=== PATIENT | male | born 1965 | race American Indian/Alaskan Native ===

== ENCOUNTER 2017-02-16 06:36 | Inpatient (IN) | payer OTHER ==
[2017-02-16] MEDS ORDERED: ZOFRAN ONE (06:40)
[2017-02-16] MEDS ORDERED: NACL 0.9% 1000 ML 0 ML ONE (06:40)
[2017-02-16] MEDS ORDERED: NORMODYNE IV ONE (06:59)
[2017-02-16] MEDS ORDERED: PROTONIX IV ONE (07:00)
[2017-02-16] MEDS ORDERED: ZOFRAN IV ONE (07:00)
[2017-02-16] MEDS ORDERED: NACL 0.9% 500 ML 500 ML IV ONE (07:00)
--- NOTE | 2017-02-16 07:04 | Emergency Department Report ---
ED GI Bleed HPI - General Chief complaint: GI Bleed Stated complaint: EMESIS/DIZZINESS/NAUSEA Time Seen by Provider: 02/16/17 06:53 Source: patient, EMS Mode of arrival: Stretcher Limitations: No Limitations - History of Present Illness Initial comments: 51-year-old male with a past medical history hypertension presents to the hospital with complaints of coffee-ground emesis since 5:15 AM. Patient reports that he had take-out curried chicken last night. Complains of mild mid abdominal pain. Last bowel movement was last night and was normal. Patient denies previous abdominal surgeries. Patient states he takes 81 mg aspirin and 2 blood pressure medications. He denies other NSAID or anticoagulate use. He states he rarely takes his blood pressure medication. No complaints of headache , blurred vision, chest pain, shortness of breath, fever, melena, or hematochezia. Severity scale (0 -10): 4 - Related Data Home Medications Medication Instructions Recorded Confirmed Last Taken Unobtainable 02/16/17 02/16/17 Unknown Allergies Allergy/AdvReac Type Severity Reaction Status Date / Time Penicillins Allergy Anaphylaxis Verified 02/16/17 06:58 ED Review of Systems ROS: Stated complaint: EMESIS/DIZZINESS/NAUSEA Other details as noted in HPI Comment: All other systems reviewed and negative Other: Constitutional: No fevers chills Eyes: No eye pain visual changes or discharge ENT: No ear pain or throat pain Neck: Denies pain Respiratory: Denies cough wheezing shortness of breath Cardiovascular: Denies chest pain, palpitations. Positive lightheadedness GI: As per HPI : Denies dysuria Musculoskeletal: Denies back pain, joint swelling Skin: Denies rash, lesions, erythema Neurologic: Denies headache, numbness, weakness Psychiatric: Denies suicidal ideation, hallucinations Hematological/lymphatic: Denies easy bruising, lymphadenopathy ED Past Medical Hx - Past Medical History Previous Medical History?: Yes Hx Hypertension: Yes - Surgical History Past Surgical History?: No - Social History Smoking Status: Never Smoker Substance Use Type: Alcohol - Medications Home Medications: Home Medications Medication Instructions Recorded Confirmed Last Taken Type Unobtainable 02/16/17 02/16/17 Unknown History ED Physical Exam - General Limitations: No Limitations - Other Other exam information: General: No limitations, patient is alert in no acute distress Head exam: Atraumatic, normocephalic Eyes exam: Normal appearance ENT: Moist mucous membrane, normal oropharynx Neck exam: Normal inspection, full range of motion, no meningismus nontender Respiratory exam: Clear to auscultation bilateral, no wheezes, rales, crackles Cardiovascular: Normal rate and rhythm, normal heart sounds Abdomen: Soft, nondistended, and nontender, with normal bowel sounds, no rebound, or guarding. Coffee-ground emesis at the bedside Extremity: Full range of motion normal inspection no deformity Back: Normal Inspection, full range of motion, no tenderness Neurologic: Alert, oriented x3, cranial nerves intact, no motor or sensory deficit Psychiatric: normal affect, normal mood Skin: Warm, dry, intact ED Course Vital Signs 02/16/17 02/16/17 02/16/17 03:49 03:50 04:00 Temperature Pulse Rate Respiratory Rate Blood Pressure 119/81 119/81 119/81 Blood Pressure [Right] O2 Sat by Pulse 100 100 100 Oximetry 02/16/17 02/16/17 02/16/17 04:10 04:20 04:30 Temperature Pulse Rate Respiratory Rate Blood Pressure 119/81 119/81 119/81 Blood Pressure [Right] O2 Sat by Pulse 100 100 100 Oximetry 02/16/17 02/16/17 02/16/17 04:40 04:50 05:00 Temperature Pulse Rate Respiratory Rate Blood Pressure 119/81 119/81 119/81 Blood Pressure [Right] O2 Sat by Pulse 100 100 100 Oximetry 02/16/17 02/16/17 02/16/17 05:10 05:20 05:30 Temperature Pulse Rate Respiratory Rate Blood Pressure 119/81 119/81 119/81 Blood Pressure [Right] O2 Sat by Pulse 100 100 100 Oximetry 02/16/17 02/16/17 02/16/17 05:40 06:32 06:40 Temperature Pulse Rate Respiratory Rate Blood Pressure 119/81 119/81 191/113 Blood Pressure [Right] O2 Sat by Pulse 100 96 95 Oximetry 02/16/17 02/16/17 02/16/17 06:47 06:50 06:52 Temperature 97.7 F Pulse Rate 92 H Respiratory 20 Rate Blood Pressure 191/113 191/113 191/113 Blood Pressure 191/113 [Right] O2 Sat by Pulse 98 93 100 Oximetry 02/16/17 02/16/17 02/16/17 06:53 06:54 06:56 Temperature Pulse Rate Respiratory 20 Rate Blood Pressure 191/113 191/113 Blood Pressure [Right] O2 Sat by Pulse 98 94 94 Oximetry 02/16/17 02/16/17 02/16/17 06:58 07:00 07:02 Temperature Pulse Rate Respiratory Rate Blood Pressure 191/113 191/113 191/113 Blood Pressure [Right] O2 Sat by Pulse 94 98 94 Oximetry 02/16/17 02/16/17 02/16/17 07:04 07:05 07:06 Temperature Pulse Rate Respiratory Rate Blood Pressure 191/113 179/113 179/113 Blood Pressure [Right] O2 Sat by Pulse 99 95 91 Oximetry 02/16/17 02/16/17 02/16/17 07:08 07:10 07:11 Temperature Pulse Rate Respiratory Rate Blood Pressure 179/113 179/113 191/113 Blood Pressure [Right] O2 Sat by Pulse 86 86 Oximetry 02/16/17 02/16/17 02/16/17 07:12 07:14 07:16 Temperature Pulse Rate Respiratory Rate Blood Pressure 179/113 179/113 179/113 Blood Pressure [Right] O2 Sat by Pulse 87 91 93 Oximetry 02/16/17 02/16/17 02/16/17 07:18 07:20 07:22 Temperature Pulse Rate Respiratory Rate Blood Pressure 179/113 179/113 179/113 Blood Pressure [Right] O2 Sat by Pulse 92 93 94 Oximetry 02/16/17 02/16/17 02/16/17 07:24 07:26 07:28 Temperature Pulse Rate Respiratory Rate Blood Pressure 179/113 179/113 179/113 Blood Pressure [Right] O2 Sat by Pulse 92 94 95 Oximetry 02/16/17 02/16/17 02/16/17 07:30 07:31 07:32 Temperature Pulse Rate Respiratory Rate Blood Pressure 179/113 167/108 167/108 Blood Pressure [Right] O2 Sat by Pulse 92 97 96 Oximetry 02/16/17 02/16/17 02/16/17 07:34 07:36 07:38 Temperature Pulse Rate Respiratory Rate Blood Pressure 167/108 167/108 167/108 Blood Pressure [Right] O2 Sat by Pulse 97 97 97 Oximetry 02/16/17 02/16/17 02/16/17 07:40 07:42 07:44 Temperature Pulse Rate Respiratory Rate Blood Pressure 167/108 167/108 167/108 Blood Pressure [Right] O2 Sat by Pulse 98 98 98 Oximetry 02/16/17 02/16/17 02/16/17 07:46 07:48 07:49 Temperature Pulse Rate Respiratory Rate Blood Pressure 167/108 167/108 191/113 Blood Pressure [Right] O2 Sat by Pulse 96 95 93 Oximetry 02/16/17 02/16/17 02/16/17 07:50 07:52 07:54 Temperature Pulse Rate Respiratory Rate Blood Pressure 191/113 216/134 216/134 Blood Pressure [Right] O2 Sat by Pulse 99 97 96 Oximetry 02/16/17 02/16/17 02/16/17 07:56 07:58 08:00 Temperature Pulse Rate Respiratory Rate Blood Pressure 216/134 216/134 182/117 Blood Pressure [Right] O2 Sat by Pulse 93 97 96 Oximetry 02/16/17 02/16/17 02/16/17 08:02 08:04 08:06 Temperature Pulse Rate Respiratory Rate Blood Pressure 182/117 182/117 182/117 Blood Pressure [Right] O2 Sat by Pulse 96 92 93 Oximetry 02/16/17 02/16/17 02/16/17 08:08 08:10 08:12 Temperature Pulse Rate Respiratory Rate Blood Pressure 182/117 182/117 182/117 Blood Pressure [Right] O2 Sat by Pulse 96 95 93 Oximetry 02/16/17 08:14 Temperature Pulse Rate Respiratory Rate Blood Pressure 182/117 Blood Pressure [Right] O2 Sat by Pulse 95 Oximetry - Reevaluation(s) Reevaluation #1: 02/16/17 08:09 Patient received labetalol 10 mg IV prior to arrival. Blood pressure is increased despite this medication. Cardene drip has been ordered. Patient also received Protonix IV 40 mg, Zofran, and normal saline - Consultations Consultation #1: 02/16/17 08:[address] Atkins higher education administrator GI physician who will evaluate patient ED Medical Decision Making - Lab Data Result diagrams: 02/16/17 07:05 02/16/17 07:05 Lab Results 02/16/17 02/16/17 02/16/17 Range/Units 07:05 07:05 07:05 WBC 14.6 H (4.5-11.0) K/mm3 RBC 5.24 H (3.65-5.03) M/mm3 Hgb 15.6 H (11.8-15.2) gm/dl Hct 47.9 H (35.5-45.6) % MCV 91 (84-94) fl MCH 30 (28-32) pg MCHC 33 (32-34) % RDW 13.0 L (13.2-15.2) % Plt Count 290 (140-440) K/mm3 Lymph % (Auto) 16.2 (13.4-35.0) % [place] % (Auto) 6.4 (0.0-7.3) % Eos % (Auto) 1.1 (0.0-4.3) % Baso % (Auto) 0.4 (0.0-1.8) % Lymph # 2.4 (1.2-5.4) K/mm3 [place] # 0.9 H (0.0-0.8) K/mm3 Eos # 0.2 (0.0-0.4) K/mm3 Baso # 0.1 (0.0-0.1) K/mm3 Seg Neutrophils % 75.9 H (40.0-70.0) % Seg Neutrophils # 11.1 H (1.8-7.7) K/mm3 PT 12.9 (12.2-14.9) Sec. INR 0.98 (0.87-1.13) APTT 27.2 (24.2-36.6) Sec. Sodium 143 (137-145) mmol/L Potassium 3.4 L (3.6-5.0) mmol/L Chloride 103.1 (98-107) mmol/L Carbon Dioxide 24 (22-30) mmol/L Anion Gap 19 mmol/L BUN 21 H (9-20) mg/dL Creatinine 1.0 (0.8-1.5) mg/dL Estimated GFR > 60 ml/min BUN/Creatinine Ratio 21.00 % Glucose 234 H (75-100) mg/dL Calcium 8.4 (8.4-10.2) mg/dL Total Bilirubin 0.90 (0.1-1.2) mg/dL AST 22 (5-40) units/L ALT 14 (7-56) units/L Alkaline Phosphatase 62 (35-129) units/L Total Creatine Kinase 180 H (55-170) units/L CK-MB (CK-2) 4.3 H (0.0-4.0) ng/mL CK-MB (CK-2) Rel Index 2.3 (0-4) Troponin T < 0.010 (0.00-0.029) ng/mL Total Protein 7.3 (6.3-8.2) g/dL Albumin 4.2 (3.9-5) g/dL Albumin/Globulin Ratio 1.4 % Lipase (13-60) units/L Blood Type Antibody Screen 02/16/17 02/16/17 Range/Units 07:05 07:05 WBC (4.5-11.0) K/mm3 RBC (3.65-5.03) M/mm3 Hgb (11.8-15.2) gm/dl Hct (35.5-45.6) % MCV (84-94) fl MCH (28-32) pg MCHC (32-34) % RDW (13.2-15.2) % Plt Count (140-440) K/mm3 Lymph % (Auto) (13.4-35.0) % [place] % (Auto) (0.0-7.3) % Eos % (Auto) (0.0-4.3) % Baso % (Auto) (0.0-1.8) % Lymph # (1.2-5.4) K/mm3 [place] # (0.0-0.8) K/mm3 Eos # (0.0-0.4) K/mm3 Baso # (0.0-0.1) K/mm3 Seg Neutrophils % (40.0-70.0) % Seg Neutrophils # (1.8-7.7) K/mm3 PT (12.2-14.9) Sec. INR (0.87-1.13) APTT (24.2-36.6) Sec. Sodium (137-145) mmol/L Potassium (3.6-5.0) mmol/L Chloride (98-107) mmol/L Carbon Dioxide (22-30) mmol/L Anion Gap mmol/L BUN (9-20) mg/dL Creatinine (0.8-1.5) mg/dL Estimated GFR ml/min BUN/Creatinine Ratio % Glucose (75-100) mg/dL Calcium (8.4-10.2) mg/dL Total Bilirubin (0.1-1.2) mg/dL AST (5-40) units/L ALT (7-56) units/L Alkaline Phosphatase (35-129) units/L Total Creatine Kinase (55-170) units/L CK-MB (CK-2) (0.0-4.0) ng/mL CK-MB (CK-2) Rel Index (0-4) Troponin T (0.00-0.029) ng/mL Total Protein (6.3-8.2) g/dL Albumin (3.9-5) g/dL Albumin/Globulin Ratio % Lipase 38 (13-60) units/L Blood Type O POSITIVE Antibody Screen TNR - EKG Data -: EKG Interpreted by Me (sinus [address] elevation or T-wave inversion) - EKG Data When compared to previous EKG there are: previous EKG unavailable - Medical Decision Making Plan to admit patient to hospital for coffee-ground emesis and uncontrolled blood pressure. Patient also has mild hypokalemia and elevated glucose. - Differential Diagnosis gastritis, food poisoning, GI bleed, Yohana-Randhawa, varices, PUD Critical Care Time: No Critical care attestation.: If time is entered above; I have spent that time in minutes in the direct care of this critically ill patient, excluding procedure time. ED Disposition Clinical Impression: Coffee ground emesis, Hypertensive urgency, Hypokalemia, Elevated glucose, Lightheadedness Disposition: OP ADMITTED IP TO THIS HOSP Is pt being admited?: Yes Condition: Stable Time of Disposition: 08:11 (Dr Fraire/Hosp)
[2017-02-16 07:21] LABS: Basophils % (Auto) 0.4 % (0.0-1.8); Eosinophils % (Auto) 1.1 % (0.0-4.3); Hematocrit 47.9 % (35.5-45.6); Hemoglobin 15.6 gm/dl (11.8-15.2); Mean Corpuscular HGB Conc 33 % (32-34); Mean Corpuscular Hemoglobin 30 pg (28-32); Mean Corpuscular Volume 91 fl (84-94); Platelet Count 290 K/mm3 (140-440); Red Blood Count 5.24 M/mm3 (3.65-5.03); White Blood Count 14.6 K/mm3 (4.5-11.0)
[2017-02-16 07:31] LABS: INR 0.98 (0.87-1.13); Partial Thromboplastin Time 27.2 Sec. (24.2-36.6)
[2017-02-16 07:43] LABS: Creatine Kinase MB 4.3 ng/mL (0.0-4.0)
[2017-02-16 07:45] LABS: Alanine Aminotransferase 14 units/L (7-56); Albumin 4.2 g/dL (3.9-5); Albumin/Globulin Ratio 1.4 %; Alkaline Phosphatase 62 units/L (35-129); Anion Gap 19 mmol/L; Blood Urea Nitrogen 21 mg/dL (9-20); Calcium 8.4 mg/dL (8.4-10.2); Carbon Dioxide 24 mmol/L (22-30); Chloride 103.1 mmol/L (98-107); Creatine Kinase 180 units/L (55-170); Glucose 234 mg/dL (75-100); Potassium 3.4 mmol/L (3.6-5.0); Sodium 143 mmol/L (137-145); Total Protein 7.3 g/dL (6.3-8.2)
--- NOTE | 2017-02-16 08:24 | Admit Criteria Form ---
Admission Criteria Documentation: GASTROINTESTINAL BLEEDING, UPPER Clinical Indications for Admission to Inpatient Care ( Place 'X' for any and all applicable criteria): Admission is indicated for ANY ONE of the following(1)(2)(3)(4)(5)(6): [ X]I. Active bleeding (eg, fresh voluminous blood in emesis or nasogastric aspirate) [ ]II. Associated conditions requiring hospitalization (eg, perforation, obstruction from ulcer) [ X]III. Inpatient admission required rather than observation care (Also use Gastrointestinal Bleeding, Upper: Observation Care as appropriate) because of ANY ONE of the following: [ ]a) Hemodynamic instability that is severe or persistent [ ]b) Anemia requiring inpatient admission as indicated by ALL of the following: [ ]1) Presence of significant clinical finding indicated by ANY ONE of the following: [ ]A. Tachycardia for age [ ]B. Orthostatic vital sign changes [ ]C. Cognitive impairment [ ]D. Heart failure [ ]E. Chest pain [ ]F. Exertional dyspnea [ ]G. Other findings suggesting inadequate perfusion (eg, peripheral or myocardial ischemia, end organ dysfunction) [ ]2) Initial (eg, emergency department, observation care) treatment with transfusion or volume replacement is judged inappropriate (due to severity of the finding) or has been ineffective [ ]c) Severe pain requiring acute inpatient management [ ]d) High-risk low platelet count [ ]e) IV fluid to replace significant ongoing losses (greater than 3 L/m2 per day) [ ]f) Immediate inpatient surgery [ X]g) Other condition, treatment or monitoring requiring inpatient admission [ ]IV. Severe liver disease (eg, cirrhosis) [ ]V. Significant active comorbid disease [ ]. Anticoagulation therapy [ ]VII. High-risk endoscopic features (arterial bleeding, adherent clot, nonbleeding visible vessel, varices, flat red spots, ulcer size greater than 2 cm, or portal hypertensive gastropathy) [ ]VIII. Previous aortic graft placement or known aortic aneurysm [ ]IX. Coagulopathy [ ]X. Syncope Extended stay beyond goal length of stay may be needed for(1)(2): [ ]a) Emergency surgery [ ]b) Varices [ ]c) Coagulation abnormalities [ ]d) Recurrent, obscure, or persistent bleeding or continued Hemodynamic instability [ ]e) Associated conditions requiring surgery (eg, perforated gastric ulcer, gastric outlet obstruction) [ ]f) Active comorbidities (eg, renal insufficiency, heart failure, pre- existing liver disease) The original [facility] [email or web address] content created by [facility] has been revised. The portions of the content which have been revised are identified through the use of italic text or in bold, and [facility] has neither reviewed nor approved the modified material. All other unmodified content is copyright [facility] [employer]. Please see references footnoted in the original [facility] edition 2016 Admission Criteria Met: Yes
[2017-02-16] MEDS ORDERED: CARDENE 50 MG in NACL 0.9% 250ML 230 ML IV SCH (09:00)
[2017-02-16] MEDS ORDERED: TYLENOL PO PRN (09:34)
[2017-02-16] MEDS ORDERED: MILK OF MAGNESIA PO PRN (09:34)
[2017-02-16] MEDS ORDERED: DULCOLAX PR PRN (09:34)
[2017-02-16] MEDS ORDERED: D50W (25GM) IV PRN (09:34)
--- NOTE | 2017-02-16 09:43 | History and Physical Report ---
History of Present Illness Chief complaint: i was vomiting History of present illness: 51-year-old male with a past medical history of hypertension and diabetes. States that he follows up with his PCP who is Dr. Juan Farooq, he admits that he was supposedly taking a baby aspirin daily 2 blood pressure medications and he has not been compliant with his meds for long period of time. He also states that he thinks he has diabetes mellitus ever followed up about 5 months, and does not follow a diabetic diet. He states that he had some [place] chicken takeout last night he slept well this morning he woke up was in his usual state of health, ready to go to work and then felt very dizzy and lightheaded. After which she started retching and vomiting. He states that he had a lot of retching he vomited about 20 times, emesis was mostly low volume, nonbilious, but the last 2 times he vomited he noticed some coffee grounds in his emesis. He denies using aspirin or any NSAIDs or any blood thinners. He denies chest pain. He states that after he started vomiting he started having it out of 10 cramping like pain in the periumbilical region that was exacerbated by vomiting and relieved when vomiting stops. He denies chest pain denies shortness of breath, at this moment he states that he is no longer nauseous place still feeling somewhat dizzy and exhausted. Past History Past Medical History: diabetes, hypertension Past Surgical History: No surgical history Social history: no significant social history, other (works for [employer]) Family history: CAD (father had premature CA), cancer (breast cancer and mother) , hypertension (father) Medications and Allergies Allergies Allergy/AdvReac Type Severity Reaction Status Date / Time Penicillins Allergy Anaphylaxis Verified 02/16/17 06:58 Home Medications Medication Instructions Recorded Confirmed Last Taken Type Unobtainable 02/16/17 02/16/17 Unknown History Active Meds: Active Medications Acetaminophen (Tylenol) 650 mg PO Q4H PRN PRN Reason: Pain MILD(1-3)/Fever >100.5/VIDAL Bisacodyl (Dulcolax) [address] QDAY PRN PRN Reason: Constipation unrelieved by MOM Dextrose (D50w (25gm)) 50 ml IV PRN PRN PRN Reason: Hypoglycemia Enoxaparin Sodium (Lovenox) 40 mg SUB-Q QDAY@2200 JAYMIE Hydralazine HCl (Apresoline) 10 mg IV Q4HR PRN PRN Reason: BP >160/100 Nicardipine HCl 50 mg/ Sodium (Chloride) 250 mls @ 25 mls/hr IV TITR JAYMIE; 5 MG/ HR PRN Reason: Protocol Last Titration: 02/16/17 09:16 Dose: 7.5 mg/hr, 37.5 mls/hr Insulin Aspart (Novolog) 0 units SUB-Q ACHS JAYMIE PRN Reason: Protocol Magnesium Hydroxide (Milk Of Magnesia) 30 ml PO Q4H PRN PRN Reason: Constipation Metoclopramide HCl (Reglan) 10 mg IV Q6H PRN PRN Reason: Nausea And Vomiting Morphine Sulfate (Morphine) 2 mg IV Q4H PRN PRN Reason: Pain, Moderate (4-6) Review of Systems All systems: negative Constitutional: fatigue, weakness Cardiovascular: no chest pain Respiratory: no cough, no shortness of breath Gastrointestinal: abdominal pain, nausea, vomiting, other (coffee ground emesis) Exam - Constitutional Vitals: Temp Pulse Resp BP Pulse Ox 97.7 F 102 H 23 141/85 99 02/16/17 06:47 02/16/17 09:22 02/16/17 09:22 02/16/17 09:22 02/16/17 09:22 General appearance: Present: mild distress, well-nourished, other (appears exhausted) - EENT Eyes: Present: PERRL ENT: hearing intact, clear oral mucosa - Neck Neck: Present: supple, normal ROM - Respiratory Respiratory effort: normal Respiratory: bilateral: CTA - Cardiovascular Heart Sounds: Present: S1 & S2. Absent: rub, click - Extremities Extremities: pulses symmetrical, No edema Peripheral Pulses: within normal limits - Abdominal General gastrointestinal: Present: soft, non-tender, non-distended, normal bowel sounds Male genitourinary: Present: normal - Integumentary Integumentary: Present: clear, warm, dry - Musculoskeletal Musculoskeletal: gait normal, strength equal bilaterally - Psychiatric Psychiatric: appropriate mood/affect, intact judgment & insight - Neurologic Neurologic: CNII-XII intact, moves all extremities Results - Labs CBC & Chem 7: 02/16/17 07:05 02/16/17 07:05 Labs: Laboratory Last Values WBC 14.6 K/mm3 (4.5-11.0) H 02/16/17 07:05 RBC 5.24 M/mm3 (3.65-5.03) H 02/16/17 07:05 Hgb 15.6 gm/dl (11.8-15.2) H 02/16/17 07:05 Hct 47.9 % (35.5-45.6) H 02/16/17 07:05 MCV 91 fl (84-94) 02/16/17 07:05 MCH 30 pg (28-32) 02/16/17 07:05 MCHC 33 % (32-34) 02/16/17 07:05 RDW 13.0 % (13.2-15.2) L 02/16/17 07:05 Plt Count 290 K/mm3 (140-440) 02/16/17 07:05 Lymph % (Auto) 16.2 % (13.4-35.0) 02/16/17 07:05 [place] % (Auto) 6.4 % (0.0-7.3) 02/16/17 07:05 Eos % (Auto) 1.1 % (0.0-4.3) 02/16/17 07:05 Baso % (Auto) 0.4 % (0.0-1.8) 02/16/17 07:05 Lymph # 2.4 K/mm3 (1.2-5.4) 02/16/17 07:05 [place] # 0.9 K/mm3 (0.0-0.8) H 02/16/17 07:05 Eos # 0.2 K/mm3 (0.0-0.4) 02/16/17 07:05 Baso # 0.1 K/mm3 (0.0-0.1) 02/16/17 07:05 Seg Neutrophils % 75.9 % (40.0-70.0) H 02/16/17 07:05 Seg Neutrophils # 11.1 K/mm3 (1.8-7.7) H 02/16/17 07:05 PT 12.9 Sec. (12.2-14.9) 02/16/17 07:05 INR 0.98 (0.87-1.13) 02/16/17 07:05 APTT 27.2 Sec. (24.2-36.6) 02/16/17 07:05 Sodium 143 mmol/L (137-145) 02/16/17 07:05 Potassium 3.4 mmol/L (3.6-5.0) L 02/16/17 07:05 Chloride 103.1 mmol/L (98-107) 02/16/17 07:05 Carbon Dioxide 24 mmol/L (22-30) 02/16/17 07:05 Anion Gap 19 mmol/L 02/16/17 07:05 BUN 21 mg/dL (9-20) H 02/16/17 07:05 Creatinine 1.0 mg/dL (0.8-1.5) 02/16/17 07:05 Estimated GFR > 60 ml/min 02/16/17 07:05 BUN/Creatinine Ratio 21.00 % 02/16/17 07:05 Glucose 234 mg/dL (75-100) H 02/16/17 07:05 Calcium 8.4 mg/dL (8.4-10.2) 02/16/17 07:05 Total Bilirubin 0.90 mg/dL (0.1-1.2) 02/16/17 07:05 AST 22 units/L (5-40) 02/16/17 07:05 ALT 14 units/L (7-56) 02/16/17 07:05 Alkaline Phosphatase 62 units/L (35-129) 02/16/17 07:05 Total Creatine Kinase 180 units/L (55-170) H 02/16/17 07:05 CK-MB (CK-2) 4.3 ng/mL (0.0-4.0) H 02/16/17 07:05 CK-MB (CK-2) Rel Index 2.3 (0-4) 02/16/17 07:05 Troponin T < 0.010 ng/mL (0.00-0.029) 02/16/17 07:05 Total Protein 7.3 g/dL (6.3-8.2) 02/16/17 07:05 Albumin 4.2 g/dL (3.9-5) 02/16/17 07:05 Albumin/Globulin Ratio 1.4 % 02/16/17 07:05 Lipase 38 units/L (13-60) 02/16/17 07:05 Blood Type O POSITIVE 02/16/17 07:05 Antibody Screen TNR 02/16/17 07:05 KRISHAN Antibody Screen Negative 02/16/17 07:05 Assessment and Plan Assessment and plan: 51M with pmh of HTN, DM, obesity, non compliant with meds who presented with Coffee ground emesis, nausea and intractable vomiting and Severely elevated BP, cw with htn urgency 1. Intractable N/V Most likely due to a viral gastroenteritis related to carry chicken dinner he had the night before presentation continue antiemetics and continue IV fluids, and supportive care 2. GI bleed Patient reports coffee-ground emesis, however given that it happened so was the tail end of multiple episodes of emesis most likely Yohana-Randhawa tear. GI consults pending Hemoglobin stable 3. Hypertensive urgency Patient has not responded to IV pushes of blood pressure medications, start cardene drip- goal is to reduce BP by 20%, when nausea has resolved will start him an appropriate blood pressure medications 4. Diabetes Obtain hemoglobin A1c, place on sliding scale insulin while in hospital, we will also check a lipid panel He has been advised that he will need yearly ophthalmologic and podiatry exams 5. Medical noncompliance Patient has been counseled for greater than 10 minutes and advised of the risks associated with untreated severe hypertension including stroke heart attack, failure and kidney failure. He verbalized understanding and is accepted this as a week or call to take better care of himself 6. Obesity Encouraged lifestyle modifications 7. DVT PPX LMWH Critical Care Time 32 minutes Plan of care discussed with patient/family: Yes
[2017-02-16] MEDS ORDERED: APRESOLINE IV PRN (10:00)
--- NOTE | 2017-02-16 10:06 | Gastroenterology Consultation ---
History of Present Illness - Reason for Consult Consult date: 02/16/17 coffee-ground emesis Requesting physician: TAMIA PERLA - History of Present Illness Pt is a 51 y/o male admitted for intractable N/V, HTN, and GI bleed. Pt reports eating montemayor chicken for dinner last night. He states he started feeling dizzy this morning while getting ready for work and then started retching/vomiting. Reports vomiting several episodes with old food and then noticed coffee ground emesis after approximately vomiting 20 times. On cardene gtt at this time for elevated BP. PMH significant for HTN and DM without compliance of medications. Denies CP, SOB, abd pain, diarrhea, heartburn, regurgitation, dysphagia,odynophagia, rectal bleeding, or melena. Reports daily BM with brown stool.No regular use of NSAIDS. No hx of tobacco use or ETOH abuse. No hx of liver disease or PUD. Past History Past Medical History: diabetes, hypertension Past Surgical History: No surgical history Social history: no significant social history, other (works for [employer]) Family history: CAD (father had premature ME), cancer (breast cancer and mother) , hypertension (father) Medications and Allergies Allergies Allergy/AdvReac Type Severity Reaction Status Date / Time Penicillins Allergy Anaphylaxis Verified 02/16/17 06:58 Home Medications Medication Instructions Recorded Confirmed Last Taken Type Unobtainable 02/16/17 02/16/17 Unknown History Active Meds: Active Medications Acetaminophen (Tylenol) 650 mg PO Q4H PRN PRN Reason: Pain MILD(1-3)/Fever >100.5/VIDAL Bisacodyl (Dulcolax) 10 mg ME QDAY PRN PRN Reason: Constipation unrelieved by MOM Dextrose (D50w (25gm)) 50 ml IV PRN PRN PRN Reason: Hypoglycemia Enoxaparin Sodium (Lovenox) 40 mg SUB-Q QDAY@2200 JAYMIE Hydralazine HCl (Apresoline) 10 mg IV Q4HR PRN PRN Reason: BP >160/100 Nicardipine HCl 50 mg/ Sodium (Chloride) 250 mls @ 25 mls/hr IV TITR JAYMIE; 5 MG/ HR PRN Reason: Protocol Last Titration: 02/16/17 10:02 Dose: 5 mg/hr, 25 mls/hr Sodium Chloride (Nacl 0.9% 1000 Ml) 1,000 mls @ 75 mls/hr IV DIRECT JAYMIE Potassium Chloride (Kcl 10meq/100ml) 10 meq in 100 mls @ 100 mls/hr IV Q1H JAYMIE Stop: 02/16/17 11:59 Insulin Aspart (Novolog) 0 units SUB-Q ACHS JAYMIE PRN Reason: Protocol Magnesium Hydroxide (Milk Of Magnesia) 30 ml PO Q4H PRN PRN Reason: Constipation Metoclopramide HCl (Reglan) 10 mg IV Q6H PRN PRN Reason: Nausea And Vomiting Morphine Sulfate (Morphine) 2 mg IV Q4H PRN PRN Reason: Pain, Moderate (4-6) Ondansetron HCl (Zofran) 4 mg IV Q8H PRN PRN Reason: N/V unrelieved by Reglan Review of Systems - Review of Systems All systems: negative Gastrointestinal: nausea, vomiting, coffee ground emesis Exam - Constitutional Vital Signs: Temp Pulse Resp BP Pulse Ox 97.7 F 101 H 14 153/85 96 02/16/17 06:47 02/16/17 09:45 02/16/17 09:45 02/16/17 09:45 02/16/17 09:45 General appearance: no acute distress, well-nourished - EENT ENT: hearing intact - Neck Neck: supple, normal ROM - Respiratory Respiratory: bilateral: CTA - Cardiovascular Rhythm: other (tachycardia) Heart Sounds: Present: S1 & S2 Extremities: No edema - Gastrointestinal General gastrointestinal: Present: soft, non-tender, non-distended, normal bowel sounds - Neurologic Neurological: alert and oriented x3 - Psychiatric Psychiatric: appropriate mood/affect, cooperative - Labs CBC & Chem 7: 02/16/17 07:05 02/16/17 07:05 Assessment and Plan 1. GI bleed/ coffee ground emesis - Most likely a Yohana-Randhawa tear - H&H stable, continue to monitor - Will start on Protonix IV BID - Will consider EGD when BP is under control and stable
[2017-02-16] MEDS: KCL 10MEQ/100ML 10 MEQ/100 ML BAG IV SCH ×2 (10:35→12:49)
[2017-02-16] MEDS ORDERED: REGLAN IV PRN (11:00)
[2017-02-16] MEDS ORDERED: MORPHINE IV PRN (11:00)
[2017-02-16] MEDS ORDERED: ZOFRAN IV PRN (11:00)
[2017-02-16] MEDS: ZESTRIL PO SCH (12:35)
[2017-02-16] MEDS: NOVOLOG SUB-Q SCH ×3 (14:32→21:54)
[2017-02-16] MEDS: NACL 0.9% 1000 ML 1,000 ML IV SCH (16:46)
[2017-02-16] MEDS: PROTONIX IV SCH (21:48)
[2017-02-16] MEDS ORDERED: LOVENOX SUB-Q SCH (22:00)
[2017-02-17] MEDS: NACL 0.9% 1000 ML 1,000 ML IV SCH (05:24)
[2017-02-17 06:11] LABS: Basophils % (Auto) 0.3 % (0.0-1.8); Eosinophils % (Auto) 0.3 % (0.0-4.3); Hematocrit 50.4 % (35.5-45.6); Hemoglobin 16.4 gm/dl (11.8-15.2); Mean Corpuscular HGB Conc 33 % (32-34); Mean Corpuscular Hemoglobin 29 pg (28-32); Mean Corpuscular Volume 90 fl (84-94); Platelet Count 273 K/mm3 (140-440); Red Cell Distribution Width 13.2 % (13.2-15.2); White Blood Count 12.7 K/mm3 (4.5-11.0)
[2017-02-17 06:34] LABS: Anion Gap 18 mmol/L; Blood Urea Nitrogen 14 mg/dL (9-20); Calcium 8.5 mg/dL (8.4-10.2); Carbon Dioxide 28 mmol/L (22-30); Chloride 99.3 mmol/L (98-107); Cholesterol 247 mg/dL (50-199); Glucose 102 mg/dL (75-100); HDL Cholesterol 46 mg/dL (40-59); LDL Cholesterol,Direct 162 mg/dL (50-130); Potassium 3.8 mmol/L (3.6-5.0); Sodium 141 mmol/L (137-145); Triglycerides 195 mg/dL (2-149)
[2017-02-17 09:42] VITALS: BP 157/100
[2017-02-17] MEDS ORDERED: HCTZ PO SCH (10:00)
[2017-02-17] MEDS: PROTONIX IV SCH (10:04)
[2017-02-17] MEDS: ZESTRIL PO SCH (10:05)
[2017-02-17] MEDS: NOVOLOG SUB-Q SCH ×2 (10:42→12:35)
--- NOTE | 2017-02-17 11:19 | Gastroenterology Progress Note ---
Assessment and Plan 1. GI bleed/ coffee ground emesis - suspect Yohana-Randhawa tear after multiple episodes of vomiting - H&H remains stable - no signs of active bleeding or hematemesis - no recommendations for EGD at this time - GI will sign off, please reconsult if pt's condition changes - D/C home on daily PPI - Discussed with pt the need for a f/u as an outpatient in 2 weeks, office information given Subjective Date of service: 02/17/17 Interval history: Pt laying in bed. No distress noted. Tolerating clear liquids. Denies N/V, abd pain, hematemesis, or signs of bleeding. Objective - Constitutional Vitals: Temp Pulse Resp BP Pulse Ox 98.6 F 86 18 157/100 97 02/17/17 09:42 02/17/17 10:00 02/17/17 10:00 02/17/17 09:42 02/17/17 10:00 General appearance: no acute distress, well-nourished - EENT Eyes: PERRL, EOM intact ENT: hearing intact - Neck Neck: supple, normal ROM - Respiratory Respiratory: bilateral: CTA - Cardiovascular Rhythm: regular Heart Sounds: Present: S1 & S2 - Extremities Extremities: No edema - Gastrointestinal General gastrointestinal: Present: soft, non-tender, non-distended, normal bowel sounds - Integumentary Integumentary: Present: warm, dry - Neurologic Neurological: alert and oriented x3 - Psychiatric Psychiatric: appropriate mood/affect, cooperative - Labs CBC & Chem 7: 02/17/17 05:12 02/17/17 05:12 Labs: Laboratory Results - last 24 hr 02/16/17 02/16/17 02/16/17 12:54 16:09 21:52 WBC RBC Hgb Hct MCV MCH MCHC RDW Plt Count Lymph % (Auto) Morris % (Auto) Eos % (Auto) Baso % (Auto) Lymph # Morris # Eos # Baso # Seg Neutrophils % Seg Neutrophils # Sodium Potassium Chloride Carbon Dioxide Anion Gap BUN Creatinine Estimated GFR BUN/Creatinine Ratio Glucose POC Glucose 108 H 82 93 Calcium Triglycerides Cholesterol LDL Cholesterol Direct HDL Cholesterol Cholesterol/HDL Ratio 02/17/17 02/17/17 05:12 05:12 WBC 12.7 H RBC 5.60 H Hgb 16.4 H Hct 50.4 H MCV 90 MCH 29 MCHC 33 RDW 13.2 Plt Count 273 Lymph % (Auto) 12.8 L Morris % (Auto) 9.4 H Eos % (Auto) 0.3 Baso % (Auto) 0.3 Lymph # 1.6 Morris # 1.2 H Eos # 0.0 Baso # 0.0 Seg Neutrophils % 77.2 H Seg Neutrophils # 9.8 H Sodium 141 Potassium 3.8 Chloride 99.3 Carbon Dioxide 28 Anion Gap 18 BUN 14 Creatinine 0.8 Estimated GFR > 60 BUN/Creatinine Ratio 17.50 Glucose 102 H POC Glucose Calcium 8.5 Triglycerides 195 H Cholesterol 247 H LDL Cholesterol Direct 162 H HDL Cholesterol 46 Cholesterol/HDL Ratio 5.36
--- NOTE | 2017-02-17 14:33 | Discharge Summary ---
Providers - Providers Date of Admission: 02/16/17 09:34 Attending physician: EVIN DENNIS MD Primary care physician: SOCIAL SERVICES COORDINATOR Hospitalization Condition: Stable Hospital course: 51M with pmh of HTN, DM, obesity, non compliant with meds who presented with Coffee ground emesis, nausea and intractable vomiting and Severely elevated BP, cw with htn urgency.. He states that that symptoms began after he eats he currently chicken dinner that he started vomiting the following morning. Of note patient admitted to not being compliant with blood pressure medications. He was admitted to the hospital he was started on a Cardene drip, when his blood pressure improved he was transitioned to oral medications. He was also counseled in great detail about the risks of uncontrolled hypertension about adherence with medical care. With regards to nausea and vomiting was most likely due to acute viral gastroenteritis, she received supportive care and it resolved. Patient had reported some small amounts of blood in his vomit from the last few times he vomited, most likely consistent with Yohana-Randhawa tear, his hemoglobin was stable, had no further episodes of hematemesis. He was seen by GI who agreed with the plan. There was concern for diabetes as his blood glucose was elevated in the emergency room, however his blood glucose normalized , his hemoglobin A1c was normal. Hyperglycemia was most likely due to acute stress reaction. Discharge diagnoses Hypertensive urgency Intractable nausea vomiting Acute gastroenteritis GI bleed Diabetes was ruled out Obesity Disposition: DISCHARGED TO HOME OR SELFCARE Time spent for discharge: 35 minutes Core Measure Documentation - Palliative Care Palliative Care/ Comfort Measures: Not Applicable - Core Measures Any of the following diagnoses?: none Exam - Constitutional Vitals: Temp Pulse Resp BP Pulse Ox 98.6 F 86 18 157/100 97 02/17/17 09:42 02/17/17 10:00 02/17/17 10:00 02/17/17 09:42 02/17/17 10:00 General appearance: Present: no acute distress, well-nourished - EENT Eyes: Present: PERRL ENT: hearing intact, clear oral mucosa - Neck Neck: Present: supple, normal ROM - Respiratory Respiratory effort: normal Respiratory: bilateral: CTA - Cardiovascular Heart Sounds: Present: S1 & S2. Absent: rub, click - Extremities Extremities: pulses symmetrical, No edema Peripheral Pulses: within normal limits - Abdominal General gastrointestinal: Present: soft, non-tender, non-distended, normal bowel sounds Male genitourinary: Present: normal - Integumentary Integumentary: Present: clear, warm, dry - Musculoskeletal Musculoskeletal: gait normal, strength equal bilaterally - Psychiatric Psychiatric: appropriate mood/affect, intact judgment & insight - Neurologic Neurologic: CNII-XII intact, moves all extremities Plan Follow up with: PRIMARY CARE,MD [Primary Care Provider] - 3-5 Days Prescriptions: AtorvaSTATin [Lipitor] 20 mg PO QHS #30 tab Hydrochlorothiazide [HCTZ] 25 mg PO QDAY #30 tablet Lisinopril [Zestril TAB] 40 mg PO QDAY #30 tablet
== END 2017-02-17 15:53 | disposition home or self-care (01) | DRG 391 ==
LOC: ED 06:36 → 4A 09:34
PROVIDERS: ADMIT Internal Medicine; ATTEND Internal Medicine
DX: K52.9 Noninfective gastroenteritis and colitis, unspecified (principal); K22.6 Gastro-esophageal laceration-hemorrhage syndrome; K92.2 Gastrointestinal hemorrhage, unspecified; I16.0 Hypertensive urgency; E87.6 Hypokalemia; I10 Essential (primary) hypertension; E66.9 Obesity, unspecified; Z68.34 Body mass index [BMI] 34.0-34.9, adult; Z88.0 Allergy status to penicillin; Z82.49 Family history of ischemic heart disease and other diseases of the circulatory system; Z91.19 Patient's noncompliance with other medical treatment and regimen; Z80.3 Family history of malignant neoplasm of breast
CPT/HCPCS: 36415; 80048; 80053; 80061; 82550; 82553; 82962; 83036; 83690; 84484; 85025; 85610; 85730; 86850; 86900; 86901; 93005; 93010; 96374; 96375; C9113; J1650; J2405; J2765; J3480; J7030; J7050